=== PATIENT | male | born 1970 | race Caucasian/White ===

== ENCOUNTER 2018-02-05 13:57 | Emergency (ER) | payer MEDICAID ==
[~2018-02-05] VITALS: Ht 175.3 cm; Wt 238.0 kg
[2018-02-05] MEDS ORDERED: VALP250 PO (14:02)
[2018-02-05] MEDS ORDERED: OLAN2.5T3 PO (14:02)
[2018-02-05 15:40] VITALS: BP 139/88
== END 2018-02-05 15:51 | disposition home or self-care (01) ==
LOC: EMS 14:00
DX: F31.9 Bipolar disorder, unspecified (principal); Z76.0 Encounter for issue of repeat prescription
CPT/HCPCS: 99283

== ENCOUNTER 2019-06-07 11:17 | Emergency (ER) | payer MEDICAID ==
[~2019-06-07] VITALS: Ht 175.3 cm; Wt 81.8 kg
[~2019-06-07 11:17] MED LIST: OLAN2.5T3 PO; VALP250 PO
[2019-06-07 12:40] LABS: BASOPHILS % (AUTO) 0.4 % (0.0-2.0); HEMATOCRIT 34.5 % (41-53); HEMOGLOBIN 11.6 g/dL (13.5-17.5); LYMPHOCYTES # (AUTO) 1.6 K/uL (1.0-4.8); LYMPHOCYTES % (AUTO) 36.3 % (22.0-44.0); MEAN CORPUSCULAR HEMOGLOBIN 28.8 pg (26.0-34.0); MEAN CORPUSCULAR HGB CONC 33.7 G/dL (31.0-37.0); MEAN CORPUSCULAR VOLUME 86 fL (80-100); MONOCYTES # (AUTO) 0.4 K/uL (0.1-1.0); MONOCYTES % (AUTO) 8.4 % (2.0-9.0); NEUTROPHILS # (AUTO) 2.3 K/uL (1.8-7.7); NEUTROPHILS % (AUTO) 52.9 % (40.0-70.0); PLATELET COUNT (AUTO) 256 K/uL (150-450); RED BLOOD CELL COUNT(AUTO) 4.04 MIL/uL (4.50-5.90); RED CELL DISTRIBUTION WIDTH 15.2 % (11.5-14.5)
[2019-06-07 12:55] LABS: ANION GAP 9 mmol/L (8-16); CARBON DIOXIDE 26 mmol/L (22-29); CHLORIDE 104 mmol/L (98-107); CREATININE 0.69 mg/dL (0.60-1.30); GLOMERULAR FILTR. RATE CALC > 60 mL/min (>60); GLUCOSE,RANDOM 86 mg/dL (70-110); POTASSIUM 3.8 mmol/L (3.5-5.1); SODIUM SERUM 139 mmol/L (136-145); UREA NITROGEN, BLOOD 8 mg/dL (7-18)
[2019-06-07 13:00] LABS: ALANINE AMINOTRANSFERASE 24 U/L (12-78); ALBUMIN 2.8 g/dL (3.4-5.0); ALKALINE PHOSPHATASE 83 U/L (46-116); ASPARTATE AMINOTRANSFERASE 15 U/L (15-37); BILIRUBIN,TOTAL 0.1 mg/dL (0.1-1.0); TOTAL PROTEIN, SERUM 5.9 g/dL (6.4-8.2)
[2019-06-07 13:40] LABS: AMPHET/METH SCREEN,URINE NEGATIVE (NEGATIVE); BARBITURATE SCREEN, URINE NEGATIVE (NEGATIVE); BENZODIAZEPINES SCREEN,URINE POSITIVE (NEGATIVE); CANNABINOID SCREEN,URINE NEGATIVE (NEGATIVE); COCAINE SCREEN,URINE NEGATIVE (NEGATIVE); METHADONE SCREEN, URINE NEGATIVE (NEGATIVE); OPIATE SCREEN,URINE NEGATIVE (NEGATIVE)
[2019-06-07 13:42] LABS: PHENCYCLIDINE SCREEN,URINE NEGATIVE (NEGATIVE)
[2019-06-07 16:25] VITALS: BP 140/78
== END 2019-06-07 16:47 | disposition home or self-care (01) ==
LOC: EMS 11:18
DX: F31.9 Bipolar disorder, unspecified (principal); F20.9 Schizophrenia, unspecified; Z79.899 Other long term (current) drug therapy
CPT/HCPCS: 36415; 80053; 80307; 85025; 99284; G0480

== ENCOUNTER 2019-06-12 04:40 | Emergency (ER) | payer MEDICAID ==
[~2019-06-12] VITALS: Ht 175.3 cm; Wt 81.8 kg
[2019-06-12] MEDS ORDERED: FLUO-191 PO (05:15)
[2019-06-12 07:47] LABS: BASOPHILS % (AUTO) 0.5 % (0.0-2.0); EOSINOPHILS % (AUTO) 0.9 % (1.0-6.0); HEMATOCRIT 37.3 % (41-53); HEMOGLOBIN 12.6 g/dL (13.5-17.5); LYMPHOCYTES # (AUTO) 2.5 K/uL (1.0-4.8); LYMPHOCYTES % (AUTO) 31.5 % (22.0-44.0); MEAN CORPUSCULAR HEMOGLOBIN 28.5 pg (26.0-34.0); MEAN CORPUSCULAR HGB CONC 33.7 G/dL (31.0-37.0); MEAN CORPUSCULAR VOLUME 84 fL (80-100); MONOCYTES # (AUTO) 0.4 K/uL (0.1-1.0); MONOCYTES % (AUTO) 4.6 % (2.0-9.0); NEUTROPHILS % (AUTO) 62.5 % (40.0-70.0); PLATELET COUNT (AUTO) 357 K/uL (150-450); RED BLOOD CELL COUNT(AUTO) 4.42 MIL/uL (4.50-5.90); RED CELL DISTRIBUTION WIDTH 15.1 % (11.5-14.5)
[2019-06-12 08:02] LABS: ANION GAP 8 mmol/L (8-16); CALCIUM, TOTAL 8.7 mg/dL (8.8-10.5); CARBON DIOXIDE 27 mmol/L (22-29); CHLORIDE 106 mmol/L (98-107); CREATININE 0.82 mg/dL (0.60-1.30); GLOMERULAR FILTR. RATE CALC > 60 mL/min (>60); GLUCOSE,RANDOM 98 mg/dL (70-110); POTASSIUM 4.1 mmol/L (3.5-5.1); SODIUM SERUM 141 mmol/L (136-145); UREA NITROGEN, BLOOD 11 mg/dL (7-18)
[2019-06-12 08:07] LABS: ALANINE AMINOTRANSFERASE 22 U/L (12-78); ALBUMIN 3.5 g/dL (3.4-5.0); ALKALINE PHOSPHATASE 95 U/L (46-116); ASPARTATE AMINOTRANSFERASE 15 U/L (15-37); BILIRUBIN,TOTAL 0.3 mg/dL (0.1-1.0); TOTAL PROTEIN, SERUM 6.7 g/dL (6.4-8.2)
[2019-06-12 09:45] LABS: AMPHET/METH SCREEN,URINE NEGATIVE (NEGATIVE); BARBITURATE SCREEN, URINE NEGATIVE (NEGATIVE); BENZODIAZEPINES SCREEN,URINE NEGATIVE (NEGATIVE); CANNABINOID SCREEN,URINE NEGATIVE (NEGATIVE); COCAINE SCREEN,URINE NEGATIVE (NEGATIVE); METHADONE SCREEN, URINE NEGATIVE (NEGATIVE); OPIATE SCREEN,URINE NEGATIVE (NEGATIVE)
[2019-06-12 09:46] LABS: PHENCYCLIDINE SCREEN,URINE NEGATIVE (NEGATIVE)
[2019-06-12] MEDS ORDERED: DiphenhydrAMINE HCL 25 MG CAPSULE PO ONE (10:00)
[2019-06-13 02:30] VITALS: BP 127/78
[2019-06-13] MEDS ORDERED: FLUoxetine HCL 20 MG CAPSULE PO ONE (06:30)
[2019-06-13] MEDS ORDERED: OLANZapine 5 MG TABLET PO ONE (06:30)
[2019-06-13] MEDS ORDERED: LORazepam 1 MG TABLET PO ONE (08:45)
== END 2019-06-13 09:30 | disposition home or self-care (01) ==
LOC: EMS 04:41
DX: F20.9 Schizophrenia, unspecified (principal); F31.9 Bipolar disorder, unspecified; Z79.899 Other long term (current) drug therapy
CPT/HCPCS: 36415; 80053; 80307; 85025; 99285; G0480

== ENCOUNTER 2020-01-22 08:42 | Inpatient (IN) | payer MEDICAID ==
[~2020-01-22] VITALS: Ht 175.3 cm; Wt 88.6 kg
[~2020-01-22 08:42] MED LIST changes: +FLUO-191 PO; -VALP250 PO
[2020-01-22] MEDS ORDERED: HALOPERIDOL LACTATE 5 MG/ML VIAL IM ONE ×2 (09:30→19:30)
[2020-01-22] MEDS ORDERED: DiphenhydrAMINE HCL 50 MG/ML VIAL IM ONE ×2 (09:30→19:30)
[2020-01-22] MEDS ORDERED: LORazepam 2 MG/ML VIAL IM ONE ×2 (09:30→19:30)
[2020-01-22 16:43] LABS: BASOPHILS % (AUTO) 0.3 % (0.0-2.0); EOSINOPHILS % (AUTO) 1.1 % (1.0-6.0); HEMOGLOBIN 13.8 g/dL (13.5-17.5); LYMPHOCYTES # (AUTO) 2.8 K/uL (1.0-4.8); LYMPHOCYTES % (AUTO) 41.7 % (22.0-44.0); MEAN CORPUSCULAR HEMOGLOBIN 30.5 pg (26.0-34.0); MEAN CORPUSCULAR HGB CONC 33.6 G/dL (31.0-37.0); MEAN CORPUSCULAR VOLUME 91 fL (80-100); MONOCYTES # (AUTO) 0.6 K/uL (0.1-1.0); MONOCYTES % (AUTO) 9.2 % (2.0-9.0); NEUTROPHILS # (AUTO) 3.2 K/uL (1.8-7.7); NEUTROPHILS % (AUTO) 47.7 % (40.0-70.0); PLATELET COUNT (AUTO) 195 K/uL (150-450); RED BLOOD CELL COUNT(AUTO) 4.52 MIL/uL (4.50-5.90); RED CELL DISTRIBUTION WIDTH 13.7 % (11.5-14.5)
[2020-01-22 16:58] LABS: ANION GAP 9 mmol/L (8-16); CARBON DIOXIDE 26 mmol/L (22-29); CHLORIDE 108 mmol/L (98-107); GLOMERULAR FILTR. RATE CALC > 60 mL/min (>60); GLUCOSE,RANDOM 99 mg/dL (70-110); POTASSIUM 3.6 mmol/L (3.5-5.1); SODIUM SERUM 143 mmol/L (136-145); UREA NITROGEN, BLOOD 17 mg/dL (7-18)
[2020-01-22 17:03] LABS: ALANINE AMINOTRANSFERASE 22 U/L (12-78); ALBUMIN 3.6 g/dL (3.4-5.0); ALKALINE PHOSPHATASE 65 U/L (46-116); ASPARTATE AMINOTRANSFERASE 18 U/L (15-37); BILIRUBIN,TOTAL 0.4 mg/dL (0.1-1.0); TOTAL PROTEIN, SERUM 7.2 g/dL (6.4-8.2)
[2020-01-22 21:08] VITALS: BP 143/69
[2020-01-23 07:43] LABS: AMPHET/METH SCREEN,URINE NEGATIVE (NEGATIVE); BARBITURATE SCREEN, URINE NEGATIVE (NEGATIVE); BENZODIAZEPINES SCREEN,URINE NEGATIVE (NEGATIVE); CANNABINOID SCREEN,URINE NEGATIVE (NEGATIVE); COCAINE SCREEN,URINE NEGATIVE (NEGATIVE); METHADONE SCREEN, URINE NEGATIVE (NEGATIVE); OPIATE SCREEN,URINE NEGATIVE (NEGATIVE)
[2020-01-23 07:44] LABS: PHENCYCLIDINE SCREEN,URINE NEGATIVE (NEGATIVE)
[2020-01-23] MEDS ORDERED: ALBUTEROL SULFATE HFA 90 MCG/PUFF 8 GM INHALER IH PRN (07:45)
[2020-01-23] MEDS ORDERED: PETROLATUM,WHITE 28 GM JELLY TP PRN (07:45)
[2020-01-23] MEDS ORDERED: OMEPRAZOLE 20 MG CAPSULE PO PRN (07:45)
[2020-01-23] MEDS ORDERED: ONDANSETRON HCL 4 MG TABLET PO PRN (07:45)
[2020-01-23] MEDS ORDERED: ACETAMINOPHEN 325 MG TABLET PO PRN (07:45)
[2020-01-23] MEDS ORDERED: LOPERAMIDE HCL 2 MG CAPSULE PO PRN (07:45)
[2020-01-23] MEDS ORDERED: CloNIDine HCL 0.1 MG TABLET PO PRN (07:45)
[2020-01-23] MEDS ORDERED: MAG HYDROX/AL HYDROX/SIMETH ES 30 ML SUSPENSION UDCUP PO PRN (07:45)
[2020-01-23] MEDS ORDERED: IBUPROFEN 600 MG TABLET PO PRN (07:45)
[2020-01-23] MEDS ORDERED: BACITRACIN 28.4 GM OINTMENT TP PRN (07:45)
[2020-01-23 08:14] VITALS: BP 136/84
[2020-01-23] MEDS: MAGNESIUM HYDROXIDE SUSPENSION 30 ML UDCUP PO PRN (08:15)
[2020-01-23] MEDS: NICOTINE 21 MG/24 HOUR PATCH TD SCH (09:08)
[2020-01-23] MEDS ORDERED: LORazepam 2 MG/ML VIAL ONE (14:14)
[2020-01-23] MEDS ORDERED: DiphenhydrAMINE HCL 50 MG/ML VIAL ONE (14:14)
[2020-01-23] MEDS ORDERED: HALOPERIDOL LACTATE 5 MG/ML VIAL ONE (14:14)
[2020-01-23] MEDS ORDERED: HALOPERIDOL LACTATE 5 MG/ML VIAL IM ONE (14:15)
[2020-01-23] MEDS ORDERED: LORazepam 2 MG/ML VIAL IM ONE (14:15)
[2020-01-23] MEDS ORDERED: DiphenhydrAMINE HCL 50 MG/ML VIAL IM ONE (14:15)
[2020-01-23 16:08] VITALS: BP 128/76
[2020-01-23] MEDS: OLANZapine 7.5 MG TABLET PO SCH (20:19)
[2020-01-23] MEDS: LORazepam 2 MG TABLET PO PRN (20:19)
[2020-01-24 04:55] VITALS: BP 132/88
[2020-01-24 08:15] VITALS: BP 138/92
[2020-01-24] MEDS: NICOTINE 21 MG/24 HOUR PATCH TD SCH (09:50)
[2020-01-24] MEDS ORDERED: OLAN10TA3 PO (11:56)
[2020-01-24] MEDS ORDERED: DIVA-54 PO (11:56)
[2020-01-24] MEDS: LORazepam 2 MG TABLET PO PRN (16:44)
[2020-01-24] MEDS: BENZTROPINE MESYLATE 1 MG TABLET PO SCH (16:44)
[2020-01-24] MEDS: OLANZapine 7.5 MG TABLET PO SCH (20:29)
[2020-01-24] MEDS: HALOPERIDOL 5 MG TABLET PO SCH (20:29)
[2020-01-25 04:21] VITALS: BP 110/68
[2020-01-25 08:17] VITALS: BP 132/74
[2020-01-25] MEDS: BENZTROPINE MESYLATE 1 MG TABLET PO SCH ×2 (08:53→16:12)
[2020-01-25] MEDS: NICOTINE 21 MG/24 HOUR PATCH TD SCH (08:53)
[2020-01-25] MEDS: HALOPERIDOL 5 MG TABLET PO SCH (22:51)
[2020-01-25] MEDS: OLANZapine 7.5 MG TABLET PO SCH (22:52)
[2020-01-26 01:12] VITALS: BP 127/77
[2020-01-26 08:07] VITALS: BP 141/80
[2020-01-26] MEDS: BENZTROPINE MESYLATE 1 MG TABLET PO SCH ×2 (08:18→16:14)
[2020-01-26] MEDS: NICOTINE 21 MG/24 HOUR PATCH TD SCH (08:18)
[2020-01-26] MEDS: MAGNESIUM HYDROXIDE SUSPENSION 30 ML UDCUP PO PRN (08:23)
[2020-01-26] MEDS: LORazepam 2 MG TABLET PO PRN ×2 (08:23→16:14)
[2020-01-26 16:07] VITALS: BP 104/60
[2020-01-26] MEDS: OLANZapine 7.5 MG TABLET PO SCH (20:33)
[2020-01-26] MEDS: HALOPERIDOL 5 MG TABLET PO SCH (20:33)
[2020-01-27 05:55] VITALS: BP 114/65
[2020-01-27 08:24] VITALS: BP 130/85
[2020-01-27] MEDS: BENZTROPINE MESYLATE 1 MG TABLET PO SCH ×2 (08:51→16:38)
[2020-01-27] MEDS: NICOTINE 21 MG/24 HOUR PATCH TD SCH (08:51)
[2020-01-27] MEDS: HALOPERIDOL 5 MG TABLET PO PRN (16:38)
[2020-01-27] MEDS: LORazepam 2 MG TABLET PO PRN ×2 (16:38→20:43)
[2020-01-27] MEDS: HALOPERIDOL 10 MG TABLET PO SCH (20:26)
[2020-01-27] MEDS: OLANZapine 7.5 MG TABLET PO SCH (20:27)
[2020-01-27] MEDS: ZOLPIDEM TARTRATE 10 MG TABLET PO PRN (20:27)
[2020-01-28] MEDS: NICOTINE 21 MG/24 HOUR PATCH TD SCH (08:01)
[2020-01-28] MEDS: LORazepam 2 MG TABLET PO PRN ×2 (08:02→16:37)
[2020-01-28] MEDS: BENZTROPINE MESYLATE 1 MG TABLET PO SCH ×2 (08:02→16:37)
[2020-01-28] MEDS: HALOPERIDOL 5 MG TABLET PO PRN (16:37)
[2020-01-28] MEDS: MAGNESIUM HYDROXIDE SUSPENSION 30 ML UDCUP PO PRN (18:31)
[2020-01-28 18:39] VITALS: BP 151/82
[2020-01-28 20:20] VITALS: BP 142/80
[2020-01-28] MEDS: OLANZapine 10 MG TABLET PO SCH (20:39)
[2020-01-28] MEDS: HALOPERIDOL 10 MG TABLET PO SCH (20:39)
[2020-01-28] MEDS: ZOLPIDEM TARTRATE 10 MG TABLET PO PRN (20:39)
[2020-01-29] MEDS: BENZOCAINE/MENTHOL LOZENGE MM PRN ×2 (04:52→20:56)
[2020-01-29 08:12] VITALS: BP 143/85
[2020-01-29] MEDS: NICOTINE 21 MG/24 HOUR PATCH TD SCH (08:56)
[2020-01-29] MEDS: LORazepam 2 MG TABLET PO PRN (08:56)
[2020-01-29] MEDS: BENZTROPINE MESYLATE 1 MG TABLET PO SCH ×2 (08:57→16:18)
[2020-01-29] MEDS: HALOPERIDOL 5 MG TABLET PO PRN (08:57)
[2020-01-29] MEDS: DOCUSATE SODIUM 100 MG CAPSULE PO PRN (08:57)
[2020-01-29] MEDS: MAGNESIUM HYDROXIDE SUSPENSION 30 ML UDCUP PO PRN ×2 (12:36→19:08)
[2020-01-29] MEDS: OLANZapine 10 MG TABLET PO SCH (20:49)
[2020-01-29] MEDS: HALOPERIDOL 10 MG TABLET PO SCH (20:49)
[2020-01-30 03:52] VITALS: BP 111/67
[2020-01-30 08:12] VITALS: BP 136/75
[2020-01-30] MEDS: NICOTINE 21 MG/24 HOUR PATCH TD SCH (08:18)
[2020-01-30] MEDS: BENZTROPINE MESYLATE 1 MG TABLET PO SCH ×2 (08:21→16:36)
[2020-01-30] MEDS: DOCUSATE SODIUM 100 MG CAPSULE PO PRN (12:21)
[2020-01-30 16:07] VITALS: BP 156/92
[2020-01-30] MEDS: MAGNESIUM HYDROXIDE SUSPENSION 30 ML UDCUP PO PRN (16:51)
[2020-01-30] MEDS: BENZOCAINE/MENTHOL LOZENGE MM PRN (20:52)
[2020-01-30] MEDS: HALOPERIDOL 10 MG TABLET PO SCH (21:01)
[2020-01-30] MEDS: OLANZapine 10 MG TABLET PO SCH (21:01)
[2020-01-30 22:08] VITALS: BP 145/85
[2020-01-31 05:53] VITALS: BP 131/78
[2020-01-31] MEDS: BENZTROPINE MESYLATE 1 MG TABLET PO SCH (08:02)
[2020-01-31 08:09] VITALS: BP 117/61
[2020-01-31] MEDS: NICOTINE 21 MG/24 HOUR PATCH TD SCH (09:00)
[2020-01-31] MEDS ORDERED: HALO10 PO (10:59)
[2020-01-31] MEDS ORDERED: BENZ1TAB10 PO (10:59)
[2020-01-31] MEDS: DOCUSATE SODIUM 100 MG CAPSULE PO PRN (12:47)
== END 2020-01-31 14:00 | disposition home or self-care (01) | DRG 885 ==
LOC: EMS 08:50 → B3A 16:52
PROVIDERS: ADMIT Psychiatry & Neurology Psychiatry; ATTEND Psychiatry & Neurology Psychiatry
DX: F20.0 Paranoid schizophrenia (principal); K59.00 Constipation, unspecified; F41.9 Anxiety disorder, unspecified; G47.00 Insomnia, unspecified
CPT/HCPCS: 80307; 99291; G0480; J1200; J1630; J2060; 36415-L1; 36415-TC; 71045-TC